=== PATIENT | male | born 1965 | race Caucasian/White ===

== ENCOUNTER 2017-02-20 15:40 | Emergency (ER) | payer OTHER ==
[~2017-02-20] VITALS: Ht 180.3 cm; Wt 93.5 kg
[2017-02-20 15:41] VITALS: BP 122/78; PULSE 67; RESP 18; TEMP 98; O2SAT 97
--- NOTE | 2017-02-20 16:00 | PD ---
HPI Chief Complaint: Wound/Suture/Staple Re-Check Time Seen by Provider: 15:56 Travel History International Travel<30 days: No Contact w/Intl Traveler<30days: No Traveled to known affect area: No History of Present Illness HPI 51 year old male presents emergency department for staple remover from the scalp. Patient reports 6 days ago he walked into the [employer] cabinet cutting his scalp. He was stapled at a local emergency room. He reports no complications. He denies pain, headache, visual changes, nausea or vomiting. PFSH Past Medical History Medical History: Denies Significant Hx Diminished Hearing: No Influenza Vaccination: No ?: Not Past Surgical History Abdominal Surgery: Yes (hernia repair) Social History Alcohol Use: Yes (occ) Tobacco Use: No Allergies-Medications (Allergen,Severity, Reaction): Coded Allergies: No Known Allergies (Unverified , 02/20/17) Reported Meds & Prescriptions Reported Meds & Active Scripts Active No Active Prescriptions or Reported Medications Review of Systems Except as stated in HPI: all other systems reviewed are Neg Physical Exam Narrative GENERAL: Well-nourished, well-developed patient. SKIN: Focused skin assessment warm/dry. Healing laceration on scalp. HEAD: Normocephalic. 2 boby present frontal scalp. Area is nontender, No erythema, drainage. EYES: No scleral icterus. No injection or drainage. NECK: Supple, trachea midline. No JVD or lymphadenopathy. CARDIOVASCULAR: Regular rate and rhythm without murmurs, gallops, or rubs. RESPIRATORY: Breath sounds equal bilaterally. No accessory muscle use. Data Data Last Documented VS Vital Signs Date Time Temp Pulse Resp B/P Pulse Ox O2 Delivery O2 Flow Rate FiO2 02/20/17 15:41 98.0 67 18 122/78 97 MDM Medical Decision Making Medical Screen Exam Complete: Yes Emergency Medical Condition: Yes Differential Diagnosis Suture removal, wound recheck, laceration to scalp Narrative Course 51-year-old male presents emergency department for staple removal. Patient sustained a scalp laceration 6 days ago. [address] Boby removed in today's visit. The wound edges were well approximated and healing without signs of infection. Diagnosis Primary Impression: Visit for suture removal Referrals: Primary Care Physician Scripts No Active Prescriptions or Reported Meds Disposition: 01 DISCHARGE HOME Condition: Stable Keesha Hernandez Feb 20, 2017 16:00
== END 2017-02-20 16:11 | disposition home or self-care (01) ==
LOC: PHEFT 15:40
DX: Z48.02 Encounter for removal of sutures (principal)
CPT/HCPCS: 99281